=== PATIENT | female | born 1975 | race Caucasian/White ===

== ENCOUNTER 2019-07-14 14:15 | Emergency (ER) | payer BC, MEDICAID ==
[~2019-07-14] VITALS: Ht 157.5 cm; Wt 55.0 kg
[2019-07-14] MEDS ORDERED: HYDROCODONE/ACETAMINOPHEN 5/325MG TABLET PO ONE (14:45)
[2019-07-14] MEDS ORDERED: KETOROLAC 30MG/ML VIAL IM ONE (14:45)
[2019-07-14 16:37] VITALS: BP 133/71
== END 2019-07-14 16:42 | disposition home or self-care (01) ==
LOC: ER 14:15
DX: M75.32 Calcific tendinitis of left shoulder (principal)
CPT/HCPCS: 73030; 81025; 96372; 99283; J1885